=== PATIENT | male | born 1965 | race African-American/Black ===

== ENCOUNTER 2021-07-22 17:38 | Inpatient (IN) | payer OTHER ==
[2021-07-22 18:18] VITALS: BMI 29.0
[2021-07-22] MEDS ORDERED: chlordiazePOXIDE HCL 25 MG CAPSULE PO PRN (19:30)
[2021-07-22] MEDS ORDERED: MAGNESIUM HYDROX 2400MG/30ML ORAL SUSPENSION 30 ML CUP PO PRN (19:30)
[2021-07-22] MEDS ORDERED: ONDANSETRON *ODT* 4 MG TABLET SL PRN (19:30)
[2021-07-22] MEDS: hydrOXYzine PAMOATE 25 MG CAPSULE (FP) PO PRN (20:24)
[2021-07-22] MEDS: amLODIPine BESYLATE 10 MG TABLET (FP) PO SCH (20:24)
[2021-07-22] MEDS: PRENATAL VITAMINS W/ FOLIC ACID TABLET (FP) PO SCH (20:25)
[2021-07-22] MEDS: NICOTINE 7 MG/24 HOURS TOPICAL PATCH TD SCH (20:25)
[2021-07-22] MEDS: ATORVASTATIN CA 10 MG TABLET (FP) PO SCH (22:30)
[2021-07-22] MEDS: THIAMINE HCL 100 MG TABLET (FP) PO SCH (22:30)
[2021-07-22] MEDS: chlordiazePOXIDE HCL 25 MG CAPSULE PO SCH (22:30)
[2021-07-22] MEDS: MELATONIN 5 MG TABLETS PO SCH (22:30)
[2021-07-23] MEDS: hydrOXYzine PAMOATE 25 MG CAPSULE (FP) PO PRN ×4 (05:55→22:20)
[2021-07-23] MEDS: chlordiazePOXIDE HCL 25 MG CAPSULE PO SCH ×4 (05:57→22:20)
[2021-07-23] MEDS: PRENATAL VITAMINS W/ FOLIC ACID TABLET (FP) PO SCH (10:13)
[2021-07-23] MEDS: amLODIPine BESYLATE 10 MG TABLET (FP) PO SCH (10:13)
[2021-07-23] MEDS: NICOTINE 7 MG/24 HOURS TOPICAL PATCH TD SCH (10:14)
[2021-07-23 13:55] LABS: HEMATOCRIT 42.2 % (35.4-49); HEMOGLOBIN 14.2 GM/dL (11.7-16.9); MCH 31.5 pg (25.7-33.7); MCHC 33.6 g/dl (32.0-35.9); MEAN CELL VOLUME 93.9 fl (80-96); MEAN PLT VOLUME 7.5 fl (7.5-11.1); PLATELET COUNT 356 10^3/uL (134-434); RBC 4.49 M/mm3 (4.00-5.60); RDW 14.5 % (11.9-15.9); WHITE BLOOD COUNT 5.1 K/mm3 (4.0-10.0)
[2021-07-23 14:20] LABS: ALBUMIN 2.9 g/dl (3.4-5.0); CALCIUM 9.1 mg/dL (8.5-10.1)
[2021-07-23 14:21] LABS: BILIRUBIN,TOTAL 0.5 mg/dL (0.2-1)
[2021-07-23 14:34] LABS: BLOOD UREA NITROGEN 14.5 mg/dL (7-18); CREATININE 0.9 mg/dL (0.55-1.3)
[2021-07-23] MEDS: MELATONIN 5 MG TABLETS PO SCH (22:19)
[2021-07-23] MEDS: ATORVASTATIN CA 10 MG TABLET (FP) PO SCH (22:20)
[2021-07-23] MEDS: THIAMINE HCL 100 MG TABLET (FP) PO SCH (22:20)
[2021-07-24] MEDS: chlordiazePOXIDE HCL 25 MG CAPSULE PO SCH ×4 (05:57→22:41)
[2021-07-24] MEDS: hydrOXYzine PAMOATE 25 MG CAPSULE (FP) PO PRN ×4 (05:58→22:38)
[2021-07-24] MEDS: NICOTINE 7 MG/24 HOURS TOPICAL PATCH TD SCH (10:48)
[2021-07-24] MEDS: amLODIPine BESYLATE 10 MG TABLET (FP) PO SCH (10:48)
[2021-07-24] MEDS: PRENATAL VITAMINS W/ FOLIC ACID TABLET (FP) PO SCH (10:48)
[2021-07-24] MEDS ORDERED: cloNIDine HCL 0.1 MG TABLET PO PRN (13:35)
[2021-07-24 14:09] LABS: SARS-CoV-2 NAA Not Detected (Not Detected)
[2021-07-24] MEDS: MELATONIN 5 MG TABLETS PO SCH (22:38)
[2021-07-24] MEDS: THIAMINE HCL 100 MG TABLET (FP) PO SCH (22:38)
[2021-07-24] MEDS: ATORVASTATIN CA 10 MG TABLET (FP) PO SCH (22:39)
[2021-07-25] MEDS ORDERED: chlordiazePOXIDE HCL 10 MG CAPSULE PO PRN
[2021-07-25] MEDS: chlordiazePOXIDE HCL 10 MG CAPSULE PO SCH ×4 (05:50→22:16)
[2021-07-25] MEDS: NICOTINE 7 MG/24 HOURS TOPICAL PATCH TD SCH (10:40)
[2021-07-25] MEDS: hydrOXYzine PAMOATE 25 MG CAPSULE (FP) PO PRN (10:40)
[2021-07-25] MEDS: amLODIPine BESYLATE 10 MG TABLET (FP) PO SCH (10:40)
[2021-07-25] MEDS: PRENATAL VITAMINS W/ FOLIC ACID TABLET (FP) PO SCH (10:40)
[2021-07-25] MEDS ORDERED: DICYCLOMINE HCL 10 MG CAPSULE PO PRN (10:43)
[2021-07-25] MEDS ORDERED: BENZOCAINE/MENTHOL (CHLORASEPTIC ) LOZENGE MM PRN (10:43)
[2021-07-25] MEDS ORDERED: BISMUTH SUBSALICYLATE 262 MG/15 ML BTL PO PRN (10:43)
[2021-07-25] MEDS ORDERED: MAGNESIUM HYDROX 2400MG/30ML ORAL SUSPENSION 30 ML CUP PO PRN (10:43)
[2021-07-25] MEDS ORDERED: MAGNESIUM CITRATE 300 ML BOTTLE PO PRN (10:43)
[2021-07-25] MEDS ORDERED: ACETAMINOPHEN 325 MG TABLET (FP) PO PRN ×2 (10:43)
[2021-07-25] MEDS ORDERED: NICOTINE 10 MG CARTRIDGE (INHALER) IH PRN (10:43)
[2021-07-25] MEDS ORDERED: IBUPROFEN 400 MG TABLET (FP) PO PRN (10:43)
[2021-07-25] MEDS ORDERED: ONDANSETRON *ODT* 4 MG TABLET SL PRN (10:43)
[2021-07-25] MEDS ORDERED: LOPERAMIDE HCL 2 MG CAPSULE PO PRN (10:43)
[2021-07-25] MEDS ORDERED: MAG HYDROX/AL HYDROX/SIMETH 30 ML UNIT-DOSE CUP PO PRN (10:43)
[2021-07-25] MEDS ORDERED: METHOCARBAMOL 500 MG TABLET PO PRN (10:43)
[2021-07-25] MEDS ORDERED: PRENATAL VITAMINS W/ FOLIC ACID TABLET (FP) PO SCH (10:45)
[2021-07-25] MEDS: hydrOXYzine PAMOATE 25 MG CAPSULE (FP) PO SCH ×3 (13:01→22:15)
[2021-07-25] MEDS ORDERED: THIAMINE HCL 100 MG TABLET (FP) PO SCH (22:00)
[2021-07-25] MEDS: MELATONIN 5 MG TABLETS PO SCH ×2 (22:15)
[2021-07-25] MEDS: THIAMINE HCL 100 MG TABLET (FP) PO SCH (22:15)
[2021-07-25] MEDS: ATORVASTATIN CA 10 MG TABLET (FP) PO SCH (22:15)
[2021-07-26] MEDS: hydrOXYzine PAMOATE 25 MG CAPSULE (FP) PO SCH ×5 (05:21→22:07)
[2021-07-26] MEDS: chlordiazePOXIDE HCL 10 MG CAPSULE PO SCH ×2 (05:21→17:46)
[2021-07-26] MEDS: PRENATAL VITAMINS W/ FOLIC ACID TABLET (FP) PO SCH (10:03)
[2021-07-26] MEDS: amLODIPine BESYLATE 10 MG TABLET (FP) PO SCH (10:03)
[2021-07-26] MEDS: NICOTINE 7 MG/24 HOURS TOPICAL PATCH TD SCH (10:05)
[2021-07-26] MEDS: ATORVASTATIN CA 10 MG TABLET (FP) PO SCH (22:06)
[2021-07-26] MEDS: MELATONIN 5 MG TABLETS PO SCH ×2 (22:08)
[2021-07-26] MEDS: THIAMINE HCL 100 MG TABLET (FP) PO SCH (22:08)
[2021-07-27] MEDS ORDERED: chlordiazePOXIDE HCL 10 MG CAPSULE PO ONE (05:00)
[2021-07-27] MEDS: hydrOXYzine PAMOATE 25 MG CAPSULE (FP) PO SCH ×3 (05:51→15:13)
[2021-07-27] MEDS: PRENATAL VITAMINS W/ FOLIC ACID TABLET (FP) PO SCH (10:04)
[2021-07-27] MEDS: amLODIPine BESYLATE 10 MG TABLET (FP) PO SCH (10:04)
[2021-07-27] MEDS: NICOTINE 7 MG/24 HOURS TOPICAL PATCH TD SCH (10:05)
[2021-07-27 13:29] VITALS: BP 128/70; PULSE 75; TEMP 97.8
== END 2021-07-27 15:21 | disposition other institution (70) | DRG 774 ==
LOC: YASAS 17:38 → Y6N 19:13
PROVIDERS: ADMIT Allergy & Immunology; ATTEND Allergy & Immunology
PROC: HZ2ZZZZ Detoxification Services for Substance Abuse Treatment (ICD-10-PCS; principal; 2021-07-22)
DX: F10.230 Alcohol dependence with withdrawal, uncomplicated (principal); F14.10 Cocaine abuse, uncomplicated; F17.210 Nicotine dependence, cigarettes, uncomplicated; E78.1 Pure hyperglyceridemia; I10 Essential (primary) hypertension; S50.812A Abrasion of left forearm, initial encounter; Y08.89XA Assault by other specified means, initial encounter; Y92.238 Other place in hospital as the place of occurrence of the external cause
CPT/HCPCS: 36415; 80053; 82962; 85027; 86780; 87811; C9803-CS; J0735; U0003; U0005

== ENCOUNTER 2021-07-27 16:06 | Inpatient (IN) | payer OTHER ==
[2021-07-27] MEDS ORDERED: MAGNESIUM HYDROX 2400MG/30ML ORAL SUSPENSION 30 ML CUP PO PRN (16:36)
[2021-07-27] MEDS ORDERED: MAG HYDROX/AL HYDROX/SIMETH 30 ML UNIT-DOSE CUP PO PRN (16:36)
[2021-07-27] MEDS ORDERED: IBUPROFEN 400 MG TABLET (FP) PO PRN (16:36)
[2021-07-27] MEDS ORDERED: MAGNESIUM CITRATE 300 ML BOTTLE PO PRN (16:36)
[2021-07-27] MEDS ORDERED: P-EPHED 60MG/TRIPROLIDI 2.5MG TABLET PO PRN (16:36)
[2021-07-27] MEDS ORDERED: BENZOCAINE/MENTHOL (CHLORASEPTIC ) LOZENGE MM PRN (16:36)
[2021-07-27] MEDS ORDERED: NICOTINE 10 MG CARTRIDGE (INHALER) IH PRN (16:36)
[2021-07-27] MEDS ORDERED: LOPERAMIDE HCL 2 MG CAPSULE PO PRN (16:36)
[2021-07-27] MEDS ORDERED: guaiFENesin 200 MG/10 ML 10 ML UNIT-DOSE CUPS PO PRN (16:36)
[2021-07-27] MEDS: hydrOXYzine PAMOATE 25 MG CAPSULE (FP) PO SCH ×2 (19:15→21:07)
[2021-07-27] MEDS: THIAMINE HCL 100 MG TABLET (FP) PO SCH (21:07)
[2021-07-27] MEDS: MELATONIN 5 MG TABLETS PO SCH (21:08)
[2021-07-27] MEDS: ATORVASTATIN CA 10 MG TABLET (FP) PO SCH (21:08)
[2021-07-28] MEDS: hydrOXYzine PAMOATE 25 MG CAPSULE (FP) PO SCH ×5 (06:37→21:30)
[2021-07-28] MEDS: PRENATAL VITAMINS W/ FOLIC ACID TABLET (FP) PO SCH (10:00)
[2021-07-28] MEDS: amLODIPine BESYLATE 10 MG TABLET (FP) PO SCH (10:00)
[2021-07-28] MEDS: NICOTINE 7 MG/24 HOURS TOPICAL PATCH TD SCH (10:02)
[2021-07-28] MEDS: THIAMINE HCL 100 MG TABLET (FP) PO SCH (21:30)
[2021-07-28] MEDS: ATORVASTATIN CA 10 MG TABLET (FP) PO SCH (21:30)
[2021-07-28] MEDS: MELATONIN 5 MG TABLETS PO SCH (21:30)
[2021-07-29] MEDS: hydrOXYzine PAMOATE 25 MG CAPSULE (FP) PO SCH (06:09)
[2021-07-29] MEDS ORDERED: hydrOXYzine PAMOATE 25 MG CAPSULE (FP) PO PRN (09:00)
[2021-07-29] MEDS: NICOTINE 7 MG/24 HOURS TOPICAL PATCH TD SCH (09:28)
[2021-07-29] MEDS: PRENATAL VITAMINS W/ FOLIC ACID TABLET (FP) PO SCH (09:28)
[2021-07-29] MEDS: amLODIPine BESYLATE 10 MG TABLET (FP) PO SCH (09:29)
[2021-07-29] MEDS: THIAMINE HCL 100 MG TABLET (FP) PO SCH (21:13)
[2021-07-29] MEDS: ATORVASTATIN CA 10 MG TABLET (FP) PO SCH (21:13)
[2021-07-29] MEDS: MELATONIN 5 MG TABLETS PO SCH (21:13)
[2021-07-30] MEDS: amLODIPine BESYLATE 10 MG TABLET (FP) PO SCH (10:01)
[2021-07-30] MEDS: PRENATAL VITAMINS W/ FOLIC ACID TABLET (FP) PO SCH (10:01)
[2021-07-30] MEDS: NICOTINE 7 MG/24 HOURS TOPICAL PATCH TD SCH (10:02)
[2021-07-30] MEDS: ATORVASTATIN CA 10 MG TABLET (FP) PO SCH (21:03)
[2021-07-30] MEDS: THIAMINE HCL 100 MG TABLET (FP) PO SCH (21:04)
[2021-07-30] MEDS: MELATONIN 5 MG TABLETS PO SCH (21:04)
[2021-07-31] MEDS: amLODIPine BESYLATE 10 MG TABLET (FP) PO SCH (10:43)
[2021-07-31] MEDS: NICOTINE 7 MG/24 HOURS TOPICAL PATCH TD SCH (10:43)
[2021-07-31] MEDS: PRENATAL VITAMINS W/ FOLIC ACID TABLET (FP) PO SCH (10:43)
[2021-07-31] MEDS: THIAMINE HCL 100 MG TABLET (FP) PO SCH (21:01)
[2021-07-31] MEDS: MELATONIN 5 MG TABLETS PO SCH (21:01)
[2021-07-31] MEDS: ATORVASTATIN CA 10 MG TABLET (FP) PO SCH (21:01)
[2021-08-01] MEDS: amLODIPine BESYLATE 10 MG TABLET (FP) PO SCH (09:48)
[2021-08-01] MEDS: PRENATAL VITAMINS W/ FOLIC ACID TABLET (FP) PO SCH (09:48)
[2021-08-01] MEDS: NICOTINE 7 MG/24 HOURS TOPICAL PATCH TD SCH (09:49)
[2021-08-01] MEDS: ACETAMINOPHEN 325 MG TABLET (FP) PO PRN (14:14)
[2021-08-01] MEDS: THIAMINE HCL 100 MG TABLET (FP) PO SCH (21:02)
[2021-08-01] MEDS: MELATONIN 5 MG TABLETS PO SCH (21:02)
[2021-08-01] MEDS: ATORVASTATIN CA 10 MG TABLET (FP) PO SCH (21:02)
[2021-08-02] MEDS: ACETAMINOPHEN 325 MG TABLET (FP) PO PRN (05:48)
[2021-08-02] MEDS: NICOTINE 7 MG/24 HOURS TOPICAL PATCH TD SCH (09:50)
[2021-08-02] MEDS: amLODIPine BESYLATE 10 MG TABLET (FP) PO SCH (09:50)
[2021-08-02] MEDS: PRENATAL VITAMINS W/ FOLIC ACID TABLET (FP) PO SCH (09:50)
[2021-08-02] MEDS: MELATONIN 5 MG TABLETS PO SCH (21:51)
[2021-08-02] MEDS: THIAMINE HCL 100 MG TABLET (FP) PO SCH (21:51)
[2021-08-02] MEDS: ATORVASTATIN CA 10 MG TABLET (FP) PO SCH (21:51)
[2021-08-03] MEDS: PRENATAL VITAMINS W/ FOLIC ACID TABLET (FP) PO SCH (09:42)
[2021-08-03] MEDS: amLODIPine BESYLATE 10 MG TABLET (FP) PO SCH (09:42)
[2021-08-03] MEDS: NICOTINE 7 MG/24 HOURS TOPICAL PATCH TD SCH (09:42)
[2021-08-03 14:07] LABS: SARS-CoV-2 NAA Not Detected (Not Detected)
[2021-08-03] MEDS: ATORVASTATIN CA 10 MG TABLET (FP) PO SCH (21:00)
[2021-08-03] MEDS: MELATONIN 5 MG TABLETS PO SCH (21:00)
[2021-08-03] MEDS: THIAMINE HCL 100 MG TABLET (FP) PO SCH (21:00)
[2021-08-04] MEDS: PRENATAL VITAMINS W/ FOLIC ACID TABLET (FP) PO SCH (10:47)
[2021-08-04] MEDS: amLODIPine BESYLATE 10 MG TABLET (FP) PO SCH (10:47)
[2021-08-04] MEDS: NICOTINE 7 MG/24 HOURS TOPICAL PATCH TD SCH (10:47)
[2021-08-04] MEDS: MELATONIN 5 MG TABLETS PO SCH (21:29)
[2021-08-04] MEDS: ATORVASTATIN CA 10 MG TABLET (FP) PO SCH (21:29)
[2021-08-04] MEDS: THIAMINE HCL 100 MG TABLET (FP) PO SCH (21:29)
[2021-08-05] MEDS: amLODIPine BESYLATE 10 MG TABLET (FP) PO SCH (09:43)
[2021-08-05] MEDS: NICOTINE 7 MG/24 HOURS TOPICAL PATCH TD SCH (09:43)
[2021-08-05] MEDS: PRENATAL VITAMINS W/ FOLIC ACID TABLET (FP) PO SCH (09:43)
[2021-08-05] MEDS: ATORVASTATIN CA 10 MG TABLET (FP) PO SCH (21:00)
[2021-08-05] MEDS: MELATONIN 5 MG TABLETS PO SCH (21:00)
[2021-08-05] MEDS: THIAMINE HCL 100 MG TABLET (FP) PO SCH (21:00)
[2021-08-06 07:05] VITALS: TEMP 97.8
[2021-08-06] MEDS: amLODIPine BESYLATE 10 MG TABLET (FP) PO SCH (10:21)
[2021-08-06] MEDS: NICOTINE 7 MG/24 HOURS TOPICAL PATCH TD SCH (10:21)
[2021-08-06] MEDS: PRENATAL VITAMINS W/ FOLIC ACID TABLET (FP) PO SCH (10:21)
[2021-08-06] MEDS: THIAMINE HCL 100 MG TABLET (FP) PO SCH (20:59)
[2021-08-06] MEDS: ATORVASTATIN CA 10 MG TABLET (FP) PO SCH (20:59)
[2021-08-06] MEDS: MELATONIN 5 MG TABLETS PO SCH (20:59)
[2021-08-07] MEDS: ACETAMINOPHEN 325 MG TABLET (FP) PO PRN (06:52)
[2021-08-07 07:12] VITALS: PULSE 78
[2021-08-07] MEDS: PRENATAL VITAMINS W/ FOLIC ACID TABLET (FP) PO SCH (09:40)
[2021-08-07] MEDS: amLODIPine BESYLATE 10 MG TABLET (FP) PO SCH (09:40)
[2021-08-07] MEDS: NICOTINE 7 MG/24 HOURS TOPICAL PATCH TD SCH (09:41)
[2021-08-07 11:07] VITALS: BP 136/83
== END 2021-08-07 17:20 | disposition left against medical advice (07) | DRG 770 ==
LOC: YASAS 16:06 → Y3W 16:07
PROVIDERS: ADMIT Allergy & Immunology; ATTEND Neuromusculoskeletal Medicine & OMM
PROC: HZ42ZZZ Group Counseling for Substance Abuse Treatment, Cognitive-Behavioral (ICD-10-PCS; principal; 2021-07-27)
DX: F10.20 Alcohol dependence, uncomplicated (principal); F14.10 Cocaine abuse, uncomplicated; F17.210 Nicotine dependence, cigarettes, uncomplicated; E78.1 Pure hyperglyceridemia; I10 Essential (primary) hypertension
CPT/HCPCS: 82962; C9803-CS; U0003; U0005